=== PATIENT | female | born 1965 | race Caucasian/White ===

== ENCOUNTER 2016-06-04 09:53 | Emergency (ER) | payer MEDICAID, OTHER ==
[~2016-06-04] VITALS: Ht 165.1 cm; Wt 74.8 kg
[2016-06-04 10:39] VITALS: BP 136/87
== END 2016-06-04 11:01 | disposition home or self-care (01) ==
LOC: ER 09:57
DX: S39.011A Strain of muscle, fascia and tendon of abdomen, initial encounter (principal); Z88.6 Allergy status to analgesic agent; X58.XXXA Exposure to other specified factors, initial encounter; Y93.89 Activity, other specified; Y99.8 Other external cause status; Y92.89 Other specified places as the place of occurrence of the external cause